=== PATIENT | male | born 1990 | race Hispanic/Latino ===

== ENCOUNTER 2017-12-22 22:31 | Emergency (ER) | payer SELFPAY ==
[2017-12-22] MEDS ORDERED: BUPIVACAINE 0.5% PF 10 ML VIAL ONE (23:13)
[2017-12-22] MEDS ORDERED: LIDOCAINE 1% MPF 5 ML VIAL ONE (23:13)
[2017-12-22] MEDS ORDERED: TETANUS & DIPHTHERIA TOX,ADULT 0.5 ML VIAL ONE (23:14)
--- NOTE | 2017-12-23 00:20 | ER ---
Nurse's Notes [facility] Name: Kenny Casillas Age: 27 yrs Sex: Male : 1990 Arrival Date: 12/22/2017 Time: 22:32 Bed 30 Private MD: Diagnosis: Laceration without foreign body of left thumb without damage to nail Presentation: 12/22 22:45 Presenting complaint: Patient states: Laceration to left thumb. States "I was cutting kb1 potatoes and the knife slipped.". Transition of care: patient was not received from another setting of care. Onset of symptoms was December 22, 2017. 22:45 Method Of Arrival: Ambulatory kb1 22:45 Acuity: LI 4 kb1 Triage Assessment: 22:59 General: Appears in no apparent distress. Behavior is cooperative. Pain: Complains of kb1 pain in left thumb. Musculoskeletal: laceration to left thumb. Injury Description: Laceration sustained to left thumb. Historical: - Allergies: 22:59 No Known Allergies; kb1 - Home Meds: 22:59 None [Active]; kb1 - PMHx: 22:59 allergies; kb1 - PSHx: 22:59 None; kb1 - Immunization history:: Last tetanus immunization: unknown, Flu vaccine is not up to date. - Social history:: Smoking status: Patient/guardian denies using tobacco. Screenin:07 Abuse screen: Denies threats or abuse. Nutritional screening: No deficits noted. kb1 Tuberculosis screening: No symptoms or risk factors identified. Fall Risk None identified. Assessment: 23:07 Reassessment: No changes from previously documented assessment. see triage assessment. kb1 23:32 Reassessment: Patient appears in no apparent distress at this time. Patient and/or kb1 family updated on plan of care and expected duration. Pain level reassessed. Patient is alert, oriented x 3, equal unlabored respirations, skin warm/dry/pink. 12/23 00:33 Reassessment: Patient appears in no apparent distress at this time. Patient and/or kb1 family updated on plan of care and expected duration. Pain level reassessed. Patient is alert, oriented x 3, equal unlabored respirations, skin warm/dry/pink. Vital Signs: 12/22 22:59 BP 154 / 84; Pulse 91; Resp 18; Temp 99.0; Pulse Ox 100% ; Weight 122.47 kg; Height 6 kb1 ft. 0 in. (182.88 cm); Pain 2/10; 23:32 BP 139 / 83; Pulse 97; Resp 18; Pulse Ox 98% ; kb1 22:59 Body Mass Index 36.62 (122.47 kg, 182.88 cm) kb1 ED Course: 22:32 Patient arrived in ED. ds1 22:36 Carlos Alberto Perez PA is PHCP. cp 22:36 Ten Monae MD is Attending Physician. cp 22:38 Marilyn Sanchez RN is Primary Nurse. kb1 22:58 Triage completed. kb1 22:59 Arm band placed on. kb1 23:07 Patient has correct armband on for positive identification. Placed in gown. Bed in low kb1 position. Pulse ox on. NIBP on. 23:07 No provider procedures requiring assistance completed. Patient did not have IV access kb1 during this emergency room visit. 23:25 X-ray completed. Portable x-ray completed in exam room. Patient tolerated procedure kw well. 23:26 XRAY Hand LEFT 3 View In Process Unspecified. EDMS 12/23 00:34 Wound care: located on left thumb was cleaned with with saline, dressed with Neosporin, kb1 Kerlix. Administered Medications: 12/22 23:18 Drug: Lidocaine (1 %) 5 ml {Note: Placed at bedside for Carlos Alberto HERNANDEZ.} Volume: 5 ml; Route: kb1 Infiltration; 23:18 Drug: Marcaine (0.5 %) 5 ml {Note: Placed at bedside for Carlos Alberto HERNANDEZ.} Volume: 10 ml; kb1 Route: Infiltration; 23:19 Drug: Tetanus-Diphtheria Toxoid Adult 0.5 ml {Senior Analysis Specialist: [employer]. Exp: kb1 04/16/2020. Lot #: [id number]. } Route: IM; Site: right deltoid; 23:33 Follow up: Response: No adverse reaction kb1 Outcome: 12/23 00:19 Discharge ordered by . cp 00:35 Discharged to home ambulatory, with family. kb1 00:35 Condition: improved 00:35 Discharge instructions given to patient, Instructed on discharge instructions, follow up and referral plans. wound care, Demonstrated understanding of instructions, follow-up care, wound care. 00:36 Patient left the ED. kb1 Signatures: Dispatcher [employer] EDCA Kayla Cummins ds1 Zhanna Covington Corey, PA PA cp Brown, Kristina RN RN kb1 Corrections: (The following items were deleted from the chart) 12/22 23:22 22:45 Presenting complaint: Patient states: Laceration to right thumb. States "I was kb1 cutting potatoes and the knife slipped." kb1
--- NOTE | 2017-12-23 00:20 | EDPHYS ---
Physician Documentation [facility] Name: Kenny Casillas Age: 27 yrs Sex: Male : 1990 Arrival Date: 12/22/2017 Time: 22:32 Bed 30 Private MD: ED Physician Ten Monae HPI: 12/22 23:00 This 27 yrs old Male presents to ER via Ambulatory with complaints of Thumb cp Injury - Laceration. 23:00 The patient or guardian reports a laceration, clean. The complaints affect the distal cp phalanx left thumb. Context: The problem was sustained at home, resulted from cutting potatoes. Onset: The symptoms/episode began/occurred this evening. Associated signs and symptoms: Pertinent negatives: cyanosis distally, decreased sensation distally. 23:00 Severity of symptoms: in the emergency department the symptoms have improved, mildly. cp Historical: - Allergies: 22:59 No Known Allergies; kb1 - Home Meds: 22:59 None [Active]; kb1 - PMHx: 22:59 allergies; kb1 - PSHx: 22:59 None; kb1 - Immunization history:: Last tetanus immunization: unknown, Flu vaccine is not up to date. - Social history:: Smoking status: Patient/guardian denies using tobacco. ROS: 23:05 Constitutional: Negative for body aches, chills, fever, poor PO intake. cp 23:05 Eyes: Negative for injury, pain, redness, and discharge. cp 23:05 Cardiovascular: Negative for chest pain. 23:05 Respiratory: Negative for cough, shortness of breath, wheezing. 23:05 Skin: Positive for laceration(s), of the distal phalanx left thumb, Negative for cellulitis, rash. 23:05 Neuro: Negative for numbness, tingling. 23:05 All other systems are negative. Exam: 23:15 Constitutional: The patient appears in no acute distress, alert, awake, non-toxic, well cp developed, well nourished. 23:15 Head/Face: Normocephalic, atraumatic. cp 23:15 Eyes: Periorbital structures: appear normal, Conjunctiva: normal, no exudate, no cp injection, Lids and lashes: appear normal, bilaterally. 23:15 ENT: External ear(s): are unremarkable, Nose: is normal, Mouth: Lips: moist, Oral mucosa: pink and intact, moist, Posterior pharynx: is normal, airway is patent. 23:15 Chest/axilla: Inspection: normal. 23:15 Cardiovascular: Rate: normal, Rhythm: regular. 23:15 Respiratory: the patient does not display signs of respiratory distress, Respirations: normal, no use of accessory muscles, no retractions, no splinting, no tachypnea. 23:15 Abdomen/GI: Exam negative for discomfort, distension, guarding, Inspection: abdomen cp appears normal. 23:15 Musculoskeletal/extremity: Tendon exam: specific tendon testing normal through active and passive range of motion 23:15 Skin: injury, laceration(s), the wound is approximately 2 cm(s), of the distal phalanx left thumb, that can be described as clean, linear, with mild bleeding. 23:15 Neuro: Sensation: 2 point discrimination is normal. Vital Signs: 22:59 BP 154 / 84; Pulse 91; Resp 18; Temp 99.0; Pulse Ox 100% ; Weight 122.47 kg; Height 6 kb1 ft. 0 in. (182.88 cm); Pain 2/10; 23:32 BP 139 / 83; Pulse 97; Resp 18; Pulse Ox 98% ; kb1 22:59 Body Mass Index 36.62 (122.47 kg, 182.88 cm) kb1 Laceration: 12/23 00:16 Wound Repair of 2cm ( 0.8in ) subcutaneous laceration to distal phalanx left thumb. cp Linear shaped.. Distal neuro/vascular/tendon intact. Anesthesia: Digital block administered with 4 mls of Lido/Marcaine. Wound prep: Moderate cleansing by me, Wound irrigation by me. Skin closed with 4 5-0 Prolene using interrupted sutures and sterile technique. Dressed with Bacitracin. Patient tolerated well. MDM: 12/22 22:37 Patient medically screened. cp 12/23 00:18 Data reviewed: vital signs, nurses notes, radiologic studies, plain films. cp 00:18 Test interpretation: by ED physician or midlevel provider: plain radiologic studies. cp Counseling: I had a detailed discussion with the patient and/or guardian regarding: the historical points, exam findings, and any diagnostic results supporting the discharge/admit diagnosis, radiology results, to return to the emergency department if symptoms worsen or persist or if there are any questions or concerns that arise at home. Response to treatment: the patient's symptoms have markedly improved after treatment, and as a result, I will discharge patient. 12/22 22:57 Order name: XRAY Hand LEFT 3 View cp 12/22 22:54 Order name: Prolene, Sutures; Complete Time: 23:33 cp 12/22 22:54 Order name: Gloves, Sterile; Complete Time: 23:21 cp 12/22 22:54 Order name: Setup Suture Tray; Complete Time: 23:22 cp 12/23 00:18 Order name: Wound dressing: bacitracin and tube guaze; Complete Time: 00:32 cp Administered Medications: 12/22 23:18 Drug: Lidocaine (1 %) 5 ml {Note: Placed at bedside for Carlos Alberto HERNANDEZ.} Volume: 5 ml; Route: kb1 Infiltration; 23:18 Drug: Marcaine (0.5 %) 5 ml {Note: Placed at bedside for Carlos Alberto HERNANDEZ.} Volume: 10 ml; kb1 Route: Infiltration; 23:19 Drug: Tetanus-Diphtheria Toxoid Adult 0.5 ml {Freight Conductor: [employer]. Exp: kb1 04/16/2020. Lot #: [id number]. } Route: IM; Site: right deltoid; 23:33 Follow up: Response: No adverse reaction kb1 Disposition: 12/23 00:17 Co-signature as Attending Physician, Ten Monae MD I agree with the assessment and tw4 plan of care. Disposition: 12/23/17 00:19 Discharged to Home. Impression: Laceration without foreign body of left thumb without damage to nail. - Condition is Stable. - Discharge Instructions: Laceration Care, Adult. - Medication Reconciliation Form, Thank You Letter, Antibiotic Education, Prescription Opioid Use, Work release form form. - Follow up: Private Physician; When: 7 - 10 days; Reason: Staple/Suture removal. - Problem is new. - Symptoms have improved. Signatures: Dispatcher [employer] EDWY Carlos Alberto Perez PA PA cp Wadley, Terrence, MD MD tw4 Marilyn Sanchez RN RN kb1
--- NOTE | 2017-12-23 07:53 | RAD REPORT ---
EXAM DESCRIPTION: RAD - Hand Left 3 View - 12/22/2017 11:29 pm CLINICAL HISTORY: Soft tissue wound, laceration left thumb COMPARISON: None. FINDINGS: No fracture, dislocation or periosteal reaction noted. No air or foreign body in the soft tissues. IMPRESSION: No bone or joint abnormality. No foreign body.
== END 2017-12-23 00:36 | disposition home or self-care (01) ==
LOC: ER 22:31
PROC: 0JQK0ZZ Repair Left Hand Subcutaneous Tissue and Fascia, Open Approach (ICD-10-PCS; principal; 2017-12-23)
DX: S61.012A Laceration without foreign body of left thumb without damage to nail, initial encounter (principal); W26.0XXA Contact with knife, initial encounter; Y93.G3 Activity, cooking and baking; Y92.000 Kitchen of unspecified non-institutional (private) residence as the place of occurrence of the external cause
CPT/HCPCS: 90714; 99284

== ENCOUNTER 2018-08-23 06:42 | Emergency (ER) | payer SELFPAY ==
[2018-08-23] MEDS ORDERED: LIDOCAINE 1% W/EPI 1:100,000 MDV 50 ML VIAL ONE (07:58)
[2018-08-23] MEDS ORDERED: ONDANSETRON 4 MG (ODT) TAB ONE (08:09)
--- NOTE | 2018-08-23 08:25 | EDPHYS ---
Physician Documentation [facility] Name: Kenny Casillas Age: 28 yrs Sex: Male : 1990 Arrival Date: 08/23/2018 Time: 06:42 Bed 5 Private MD: ED Physician Carlos Alberto Anderson HPI: 08/23 08:43 This 28 yrs old Male presents to ER via Ambulatory with complaints of snw Laceration To Arm. 08:43 The patient has a laceration related to: Intoxicated trying to get into house. Broke snw window to enter, glass cut right forearm occurred at home, and ETOH. The laceration(s) is(are) located on the dorsal aspect of right forearm. Onset: The symptoms/episode began/occurred suddenly, just prior to arrival. Associated signs and symptoms: Pertinent positives: heavy bleeding. The patient has not experienced similar symptoms in the past. The patient has not recently seen a physician. last tetanus Jun 2017. Historical: - Allergies: 06:53 No Known Allergies; aa1 - Home Meds: 06:53 None [Active]; aa1 - PMHx: 06:53 allergies; aa1 - PSHx: 06:53 None; aa1 - Immunization history:: Last tetanus immunization: up to date. - Social history:: Smoking status: Patient/guardian denies using tobacco. - Ebola Screening: : No symptoms or risks identified at this time. ROS: 08:41 Constitutional: Negative for fever, chills, and weight loss, Eyes: Negative for injury, snw pain, redness, and discharge, ENT: Negative for injury, pain, and discharge, Neck: Negative for injury, pain, and swelling, Cardiovascular: Negative for chest pain, palpitations, and edema, Respiratory: Negative for shortness of breath, cough, wheezing, and pleuritic chest pain, Abdomen/GI: Negative for abdominal pain, nausea, vomiting, diarrhea, and constipation, Back: Negative for injury and pain, : Negative for injury, bleeding, discharge, and swelling, MS/Extremity: Negative for injury and deformity, Neuro: Negative for headache, weakness, numbness, tingling, and seizure, Psych: Negative for depression, anxiety, suicide ideation, homicidal ideation, and hallucinations. 08:41 Skin: Positive for laceration(s), of the dorsal aspect of right forearm. Exam: 08:41 Constitutional: This is a well developed, well nourished patient who is awake, alert, snw and in no acute distress. +ETOH Head/Face: Normocephalic, atraumatic. Eyes: Pupils equal round and reactive to light, extra-ocular motions intact. Lids and lashes normal. Conjunctiva and sclera are non-icteric and not injected. Cornea within normal limits. Periorbital areas with no swelling, redness, or edema. ENT: Nares patent. No nasal discharge, no septal abnormalities noted. Tympanic membranes are normal and external auditory canals are clear. Oropharynx with no redness, swelling, or masses, exudates, or evidence of obstruction, uvula midline. Mucous membranes moist. Neck: Trachea midline, no thyromegaly or masses palpated, and no cervical lymphadenopathy. Supple, full range of motion without nuchal rigidity, or vertebral point tenderness. No Meningismus. Chest/axilla: Normal chest wall appearance and motion. Nontender with no deformity. No lesions are appreciated. Cardiovascular: Regular rate and rhythm with a normal S1 and S2. No gallops, murmurs, or rubs. Normal PMI, no JVD. No pulse deficits. Respiratory: Lungs have equal breath sounds bilaterally, clear to auscultation and percussion. No rales, rhonchi or wheezes noted. No increased work of breathing, no retractions or nasal flaring. Abdomen/GI: Soft, non-tender, with normal bowel sounds. No distension or tympany. No guarding or rebound. No evidence of tenderness throughout. Back: No spinal tenderness. No costovertebral tenderness. Full range of motion. MS/ Extremity: Pulses equal, no cyanosis. Neurovascular intact. Full, normal range of motion. Neuro: Awake and alert, GCS 15, oriented to person, place, time, and situation. Cranial nerves II-XII grossly intact. Motor strength 5/5 in all extremities. Sensory grossly intact. Cerebellar exam normal. Normal gait. Psych: Awake, alert, with orientation to person, place and time. Behavior, mood, and affect are within normal limits. 08:41 Skin: Appearance: normal except for affected area, injury, laceration(s), the wound is approximately 7 cm(s), with a depth of 4 cm(s), of the dorsal aspect of right forearm, tendon visible but not lacerated, full ROM of all distal structures, + sensation. Vital Signs: 06:53 BP 101 / 84; Pulse 103; Resp 18; Temp 97.7; Pulse Ox 95% on R/A; Weight 136.08 kg; aa1 Height 6 ft. 0 in. (182.88 cm); Pain 6/10; 07:30 BP 118 / 67; Pulse 106; Resp 14; Pulse Ox 92% ; bp 08:30 BP 115 / 75; Pulse 99; Resp 16; Pulse Ox 96% ; bp 06:53 Body Mass Index 40.69 (136.08 kg, 182.88 cm) aa1 Laceration: 08:37 Wound Repair of 7cm ( 2.8in ) partial thickness laceration to dorsal aspect of right snw forearm. Profuse bleeding noted.. Distal neuro/vascular/tendon intact. Anesthesia: Local anesthetic administered with 10 mls of 1% lidocaine. Wound prep: Extensive cleansing by me, Wound irrigation with saline, Wound explored moderately. Subcutaneous tissue closed with 6 4-0 chromic using simple sutures and sterile technique. Skin closed with 8 Vannesa using staple gun. Dressed with pressure dressing, non-adherent dressing. Patient tolerated well. MDM: 06:53 Patient medically screened. snw 08/24 06:32 Data reviewed: vital signs, nurses notes. gustavo 08/23 08:41 Order name: Chromic, Sutures snw 08/23 08:41 Order name: Dressing - Wound snw 08/23 08:41 Order name: Gloves, Sterile snw 08/23 08:41 Order name: Setup Suture Tray snw Administered Medications: 08/23 08:00 Drug: Lidocaine-Epinephrine -2 % (1:100,000) 10 ml Route: Infiltration; bp 08:00 Drug: Zofran 4 mg Route: PO; bp 08:41 Follow up: Response: Nausea is decreased bp Disposition: 08/24 06:32 Co-signature as Attending Physician, Carlos Alberto Anderson MD I agree with the assessment and [facility] plan of care. Disposition: 08/23/18 08:24 Discharged to Home. Impression: Alcohol use, unspecified with intoxication, Laceration without foreign body of right forearm. - Condition is Stable. - Discharge Instructions: Elastic Bandage and RICE, Alcohol Intoxication, Laceration Care, Adult, Sutured Wound Care, Wound Infection. - Prescriptions for Keflex 500 mg Oral Capsule - take 1 capsule by ORAL route every 8 hours for 10 days; 30 capsule. - Work release form, Medication Reconciliation Form, Thank You Letter, Antibiotic Education, Prescription Opioid Use form. - Follow up: Private Physician; When: 2 - 3 days; Reason: Recheck today's complaints, Continuance of care, Re-evaluation by your physician. Follow up: Emergency Department; When: As needed; Reason: Worsening of condition. Signatures: Fanny Fleming, RN RN aa1 Carlos Alberto Anderson MD MD cha Therrien, Shelly, RECEP-C RECEP-Csnw Felipe Cisneros RN RN bp Corrections: (The following items were deleted from the chart) 08/23 08:42 08:24 08/23/2018 08:24 Discharged to Home. Impression: Alcohol use, unspecified with bp intoxication; Laceration without foreign body of right forearm. Condition is Stable. Forms are Medication Reconciliation Form, Thank You Letter, Antibiotic Education, Prescription Opioid Use. Follow up: Private Physician; When: 2 - 3 days; Reason: Recheck today's complaints, Continuance of care, Re-evaluation by your physician. Follow up: Emergency Department; When: As needed; Reason: Worsening of condition. snw
--- NOTE | 2018-08-23 08:25 | ER ---
Nurse's Notes [facility] Name: Kenny Casillas Age: 28 yrs Sex: Male : 1990 Arrival Date: 08/23/2018 Time: 06:42 Bed 5 Private MD: Diagnosis: Alcohol use, unspecified with intoxication;Laceration without foreign body of right forearm Presentation: 08/23 06:52 Presenting complaint: Patient states: he cut his R forearm trying to get inside his aa1 house buy breaking a window. Laceration noted with bleeding controlled at this time. CMS intact. Transition of care: patient was not received from another setting of care. Onset of symptoms was August 23, 2018. Risk Assessment: Do you want to hurt yourself or someone else? Patient reports no desire to harm self or others. Initial Sepsis Screen: Does the patient meet any 2 criteria? No. Patient's initial sepsis screen is negative. Does the patient have a suspected source of infection? Yes: Skin breakdown/wound. Care prior to arrival: None. 06:52 Method Of Arrival: Ambulatory aa1 06:52 Acuity: LI 3 aa1 07:00 Complicating Factors: There are no complicating factors for this patient. bp Triage Assessment: 06:53 General: Appears in no apparent distress. comfortable, Behavior is calm, cooperative, aa1 appropriate for age, Smells of alcohol. Historical: - Allergies: 06:53 No Known Allergies; aa1 - Home Meds: 06:53 None [Active]; aa1 - PMHx: 06:53 allergies; aa1 - PSHx: 06:53 None; aa1 - Immunization history:: Last tetanus immunization: up to date. - Social history:: Smoking status: Patient/guardian denies using tobacco. - Ebola Screening: : No symptoms or risks identified at this time. Screenin:45 Abuse screen: Denies threats or abuse. Denies injuries from another. Nutritional bp screening: No deficits noted. Tuberculosis screening: No symptoms or risk factors identified. Fall Risk None identified. Assessment: 07:00 General: Appears in no apparent distress. comfortable, obese, Behavior is cooperative, bp appropriate for age, anxious, Smells of alcohol, RECD REPORT FROM IDALIA DUDLEY. 28YO HM P/W LAC TO R LOWER ARM. NO ACTIVE BLEEDING. Pain: Complains of pain in right arm. Neuro: Level of Consciousness is awake, alert, obeys commands. Cardiovascular: No deficits noted. Respiratory: Airway is patent Respiratory effort is even, unlabored, Respiratory pattern is regular, symmetrical. GI: No signs and/or symptoms were reported involving the gastrointestinal system. : No signs and/or symptoms were reported regarding the genitourinary system. EENT: No deficits noted. Derm: No deficits noted. Musculoskeletal: Circulation, motion, and sensation intact. Range of motion: intact in all extremities. Injury Description: Laceration is 2.6 to 7.5 cm long, not bleeding. 08:35 Reassessment: WOUND CLOSURE COMPLETE, DRESSING APPLIED, NO ACTIVE BLEEDING. PT D/C HOME bp AMBULATORY WITH FAMILY, INSTRUCTED ON WOUND CARE, DX WITH LACERATION. Vital Signs: 06:53 BP 101 / 84; Pulse 103; Resp 18; Temp 97.7; Pulse Ox 95% on R/A; Weight 136.08 kg; aa1 Height 6 ft. 0 in. (182.88 cm); Pain 6/10; 07:30 BP 118 / 67; Pulse 106; Resp 14; Pulse Ox 92% ; bp 08:30 BP 115 / 75; Pulse 99; Resp 16; Pulse Ox 96% ; bp 06:53 Body Mass Index 40.69 (136.08 kg, 182.88 cm) aa1 ED Course: 06:42 Patient arrived in ED. ds1 06:53 [facility] snw 06:53 Carlos Alberto Anderson MD is Attending Physician. snw 06:53 Triage completed. aa1 06:53 Arm band placed on left wrist. aa1 07:00 Patient has correct armband on for positive identification. Bed in low position. Call bp light in reach. Side rails up X2. Adult w/ patient. 07:12 Felipe Cisneros, RN is Primary Nurse. bp 08:00 Assist provider with laceration repair on right arm that was between 7.6 to 12.5 cm bp using INTERNAL SUTURES WITH EXTERNAL STAPLE CLOSURE. Set up tray. Performed by Cheryle BUSCH Dressed with Kristin, Patient tolerated well. 08:37 Patient did not have IV access during this emergency room visit. bp Administered Medications: 08:00 Drug: Lidocaine-Epinephrine -2 % (1:100,000) 10 ml Route: Infiltration; bp 08:00 Drug: Zofran 4 mg Route: PO; bp 08:41 Follow up: Response: Nausea is decreased bp Outcome: 08:24 Discharge ordered by . snw 08:37 Discharged to home ambulatory, with family. bp 08:37 Condition: stable 08:37 Discharge instructions given to patient, family, Instructed on discharge instructions, follow up and referral plans. medication usage, wound care, Demonstrated understanding of instructions, follow-up care, medications, wound care, Prescriptions given X 1. 08:42 Patient left the ED. bp Signatures: Fanny Fleming, RN RN aa1 Cheryle Abebe, SWITCHBOX ASSEMBLER-C SWITCHBOX ASSEMBLER-Csnw Kayla Cummins ds1 Felipe Cisneros, RN RN bp
== END 2018-08-23 08:42 | disposition home or self-care (01) ==
LOC: ER 06:42
PROC: 0JQG0ZZ Repair Right Lower Arm Subcutaneous Tissue and Fascia, Open Approach (ICD-10-PCS; principal; 2018-08-23)
DX: S51.811A Laceration without foreign body of right forearm, initial encounter (principal); W25.XXXA Contact with sharp glass, initial encounter; Y92.009 Unspecified place in unspecified non-institutional (private) residence as the place of occurrence of the external cause; F10.929 Alcohol use, unspecified with intoxication, unspecified
CPT/HCPCS: 99283

== ENCOUNTER 2020-10-28 06:09 | Emergency (ER) | payer SELFPAY ==
--- NOTE | 2020-10-28 06:43 | EDPHYS ---
Physician Documentation [facility] Name: Kenny Casillas Age: 30 yrs Sex: Male : 1990 Arrival Date: 10/28/2020 Time: 06:10 Bed 5 Private MD: ED Physician Ten Monae HPI: 10/28 06:40 This 30 yrs old Male presents to ER via Ambulatory with complaints of Flu tw4 Symptoms. 06:40 The patient reports fever, not measured (subjective). Onset: The symptoms/episode tw4 began/occurred yesterday. Modifying factors: there are no obvious modifying factors. Associated signs and symptoms: Pertinent positives: arthralgias, chills, sore throat. Severity of symptoms: At their worst the symptoms were mild in the emergency department the symptoms are unchanged. The patient has not experienced similar symptoms in the past. Historical: - Allergies: 06:21 No Known Allergies; mg2 - Home Meds: 06:21 None [Active]; mg2 - PMHx: 06:21 allergies; mg2 - PSHx: 06:21 None; mg2 - Immunization history:: Flu vaccine is not up to date. - Social history:: Smoking status: unknown. ROS: 06:40 Cardiovascular: Negative for chest pain, palpitations, and edema, Respiratory: Negative tw4 for shortness of breath, cough, wheezing, and pleuritic chest pain, Abdomen/GI: Negative for abdominal pain, nausea, vomiting, diarrhea, and constipation, Back: Negative for injury and pain. 06:40 MS/Extremity: Negative for injury and deformity, Skin: Negative for injury, rash, and discoloration. 06:40 Constitutional: Positive for body aches, chills, fever, malaise. 06:40 ENT: Positive for sore throat. Exam: 06:40 Constitutional: This is a well developed, well nourished patient who is awake, alert, tw4 and in no acute distress. Head/Face: Normocephalic, atraumatic. Chest/axilla: Normal chest wall appearance and motion. Nontender with no deformity. No lesions are appreciated. Cardiovascular: Regular rate and rhythm with a normal S1 and S2. No gallops, murmurs, or rubs. Normal PMI, no JVD. No pulse deficits. Respiratory: Lungs have equal breath sounds bilaterally, clear to auscultation and percussion. No rales, rhonchi or wheezes noted. No increased work of breathing, no retractions or nasal flaring. Abdomen/GI: Soft, non-tender, with normal bowel sounds. No distension or tympany. No guarding or rebound. No evidence of tenderness throughout. Back: No spinal tenderness. No costovertebral tenderness. Full range of motion. MS/ Extremity: Pulses equal, no cyanosis. Neurovascular intact. Full, normal range of motion. Neuro: Awake and alert, GCS 15, oriented to person, place, time, and situation. Cranial nerves II-XII grossly intact. Motor strength 5/5 in all extremities. Sensory grossly intact. Cerebellar exam normal. Normal gait. Vital Signs: 06:19 BP 164 / 91; Pulse 80; Resp 18; Temp 98; Pulse Ox 98% on R/A; Weight 140.61 kg; Height mg2 6 ft. 0 in. (182.88 cm); 06:19 Body Mass Index 42.04 (140.61 kg, 182.88 cm) mg2 MDM: 06:40 Patient medically screened. tw4 06:40 Data reviewed: vital signs, nurses notes. Counseling: I had a detailed discussion with [facility] the patient and/or guardian regarding: the historical points, exam findings, and any diagnostic results supporting the discharge/admit diagnosis. Special discussion: I discussed with the patient/guardian in detail that at this point there is no indication for admission to the hospital. It is understood, however, that if the symptoms persist or worsen the patient needs to return immediately for re-evaluation. ED course: Pt swapped for Covid presumed positive with close contact. 10/28 06:16 Order name: COVID-19 : Document "Date of Symptom Onset" if Symptomatic.: 10/27/20 mg2 Administered Medications: No medications were administered Disposition: 10/28/20 06:43 Discharged to Home. Impression: Viral infection, unspecified. - Condition is Stable. - Discharge Instructions: Viral Respiratory Infection, [id number]. - Prescriptions for Ibuprofen 800 mg Oral Tablet - take 1 tablet by ORAL route every 8 hours As needed take with food; 30 tablet. - Work release form, Family Work Release, Medication Reconciliation Form, Thank You Letter, Antibiotic Education, Prescription Opioid Use form. - Follow up: Private Physician; When: Upon discharge from the Emergency Department; Reason: Recheck today's complaints, Continuance of care, Re-evaluation by your physician. - Problem is new. - Symptoms have improved. Signatures: Dispatcher [employer] [facility] Ten Monae MD MD tw4 Deuce Johnson, RN RN mg2 Corrections: (The following items were deleted from the chart) 06:37 06:12 Influenza Screen (A \\T\\ B)+[id number] ordered. [facility] EDMI 06:49 06:17 CORONAVIRUS ordered. [facility] EDMI 06:54 06:43 10/28/2020 06:43 Discharged to Home. Impression: Viral infection, unspecified. mg2 Condition is Stable. Forms are Medication Reconciliation Form, Thank You Letter, Antibiotic Education, Prescription Opioid Use. Follow up: Private Physician; When: Upon discharge from the Emergency Department; Reason: Recheck today's complaints, Continuance of care, Re-evaluation by your physician. Problem is new. Symptoms have improved. tw4
--- NOTE | 2020-10-28 06:43 | ER ---
Nurse's Notes [facility] Name: Kenny Casillas Age: 30 yrs Sex: Male : 1990 Arrival Date: 10/28/2020 Time: 06:10 Bed 5 Private MD: Diagnosis: Viral infection, unspecified Presentation: 10/28 06:19 Chief complaint: Patient states: my is covid positive and since yesterday morning mg2 bisi been having bodyaches, fever (101 F) and sore throat. Coronavirus screen: Client denies travel out of the [place] in the last 14 days. Client presents with at least one sign or symptom that may indicate coronavirus-19. Standard/surgical mask placed on the client. Provider contacted for isolation considerations. Ebola Screen: No symptoms or risks identified at this time. Initial Sepsis Screen: Does the patient meet any 2 criteria? No. Patient's initial sepsis screen is negative. Does the patient have a suspected source of infection? No. Patient's initial sepsis screen is negative. Risk Assessment: Do you want to hurt yourself or someone else? Patient reports no desire to harm self or others. Onset of symptoms was October 26, 2020. 06:19 Method Of Arrival: Ambulatory [facility] 06:19 Acuity: LI 4 mg2 Triage Assessment: 06:21 General: Appears in no apparent distress. comfortable, Behavior is calm, cooperative. mg2 Pain: Complains of pain in sore throat. EENT: Reports sore throat. Neuro: Level of Consciousness is awake, alert, obeys commands, Oriented to person, place, time, situation. Cardiovascular: Capillary refill < 3 seconds Patient's skin is warm and dry. Respiratory: No deficits noted. GI: No signs and/or symptoms were reported involving the gastrointestinal system. : No signs and/or symptoms were reported regarding the genitourinary system. Derm: Skin is intact, is healthy with good turgor, Skin is pink, warm \T\ dry. normal. Musculoskeletal: Circulation, motion, and sensation intact. Capillary refill < 3 seconds. Historical: - Allergies: 06:21 No Known Allergies; mg2 - Home Meds: 06:21 None [Active]; mg2 - PMHx: 06:21 allergies; mg2 - PSHx: 06:21 None; mg2 - Immunization history:: Flu vaccine is not up to date. - Social history:: Smoking status: unknown. Screenin:22 Abuse screen: Denies threats or abuse. Denies injuries from another. Nutritional mg2 screening: No deficits noted. Tuberculosis screening: No symptoms or risk factors identified. Fall Risk None identified. Assessment: 06:22 Reassessment: see triage note. mg2 Vital Signs: 06:19 BP 164 / 91; Pulse 80; Resp 18; Temp 98; Pulse Ox 98% on R/A; Weight 140.61 kg; Height mg2 6 ft. 0 in. (182.88 cm); 06:19 Body Mass Index 42.04 (140.61 kg, 182.88 cm) mg2 ED Course: 06:10 Patient arrived in ED. cl3 06:14 Deuce Johnson, RN is Primary Nurse. mg2 06:21 Triage completed. mg2 06:21 Arm band placed on. mg2 06:23 No provider procedures requiring assistance completed. COVID swab sent to lab. Flu mg2 and/or RSV swab sent to lab. 06:32 Ten Monae MD is Attending Physician. tw4 06:53 Patient has correct armband on for positive identification. mg2 06:53 Patient did not have IV access during this emergency room visit. mg2 Administered Medications: No medications were administered Outcome: 06:43 Discharge ordered by . tw4 06:53 Discharged to home ambulatory. mg2 06:53 Condition: stable 06:53 Discharge instructions given to patient, Instructed on discharge instructions, follow up and referral plans. medication usage, Demonstrated understanding of instructions, follow-up care, medications, Prescriptions given X 1. 06:54 Patient left the ED. mg2 Addendum: 10/29/2020 17:49 Addendum: COVID-19 Result: Negative result given to RN to notify pt. Notified pt of e b negative COVID 19 swab results. Pt advised that even with a negative test result they should remain in isolation until symptom free for 3 days without medication. Pt also advised to return to the ED for worsening symptoms. Signatures: Ten Monae MD MD tw4 Mattie Palencia Michele, OCTAVIA RN mg2 Dominik Harvey cl3
[2020-10-28 06:58] VITALS: BP 164/91; TEMP 98; O2SAT 98
== END 2020-10-28 06:54 | disposition home or self-care (01) ==
LOC: ER 06:09
DX: B34.9 Viral infection, unspecified (principal); Z20.822 Contact with and (suspected) exposure to COVID-19
CPT/HCPCS: 99283; U0003